=== PATIENT | male | born 1970 | race African-American/Black ===

== ENCOUNTER 2020-06-30 08:57 | Outpatient (CLI) | payer MEDICAID, SELFPAY ==
[2020-06-30 09:39] LABS: Basophils Absolute Auto 0.1 K/mm3 (0.0-0.1); Basophils Percent Auto 0.9 % (0.2-1.2); Eosinophils Absolute Auto 0.1 K/mm3 (0-0.3); Hematocrit 53.1 % (42.0-52.0); Hemoglobin 17.5 g/dL (14.0-18.0); Immature Granulocyte Absolute 0.01 K/mm3 (0.00-0.031); Immature Granulocyte Percent A 0.2 % (0-0.5); Lymphocytes Absolute Auto 3.24 K/mm3 (0.9-3.2); Lymphocytes Percent Auto 60.1 % (18.3-44.2); Mean Corpuscular Hemoglobin 27.3 pg (26-34); Mean Corpuscular Volume 82.7 fl (80-100); Mean Platelet Volume 10.6 fl (7.4-10.4); Monocytes Absolute Auto 0.3 K/mm3 (0.1-0.6); Monocytes Percent Auto 6.3 % (2.6-8.5); Neutrophils Absolute Auto 1.6 K/mm3 (1.3-6.7); Neutrophils Percent Auto 30.5 % (45.5-73.1); Platelet Count Result 224 k/mm3 (150-375); Red Blood Count 6.42 M/mm3 (4.6-6.20); Red Cell Distribution Width 15.6 % (11.5-14.5); White Blood Count 5.4 K/mm3 (4.5-10.0)
[2020-06-30 09:50] LABS: Hemoglobin A1C 6.1 % (<5.7)
[2020-06-30 09:51] LABS: Alanine Aminotransferase 64 U/L (4-50); Albumin Level 4.8 g/dL (3.5-5.1); Alkaline Phosphatase 87 U/L (38-126); Anion Gap 10 mmol/L (8-16); Anion Gap 8 mmol/L (8-16); Aspartate Amino Transferase 36 U/L (17-59); Bilirubin,Total 0.3 mg/dL (0.2-1.3); Blood Urea Nitrogen 17 mg/dL (9-20); Blood Urea Nitrogen 18 mg/dL (9-20); Calcium 9.5 mg/dL (8.4-10.2); Carbon Dioxide 26 mmol/L (22-30); Carbon Dioxide 27 mmol/L (22-30); Chloride 105 mmol/L (98-107); Chloride 106 mmol/L (98-107); Cholesterol 214 mg/dL (0-200); Estimated Glomerular Filt Rate > 60; Glucose 120 mg/dL (75-110); Glucose 121 mg/dL (75-110); HDL Direct 39 mg/dL; Potassium 4.3 mmol/L (3.4-5.0); Potassium 4.4 mmol/L (3.4-5.0); Sodium 140 mmol/L (137-145); Sodium 142 mmol/L (137-145); Triglycerides 98 mg/dL (<150); Uric Acid 7.6 mg/dL (3.5-8.5)
[2020-06-30 10:02] LABS: LDL Cholesterol Direct 155 mg/dL
[2020-06-30 10:21] LABS: Prostate Specific Antigen 0.4 ng/mL (< OR = 4.0); Vitamin D 25 Hydroxy 35.6 ng/mL
== END 2020-06-30 08:58 | disposition home or self-care (01) ==
LOC: ANHLAB 09:01
PROVIDERS: PCP Internal Medicine; Visit Provider Nurse Practitioner
DX: E78.5 Hyperlipidemia, unspecified (principal); I10 Essential (primary) hypertension; R73.01 Impaired fasting glucose; M10.9 Gout, unspecified; Z12.5 Encounter for screening for malignant neoplasm of prostate; D75.1 Secondary polycythemia; Z87.39 Personal history of other diseases of the musculoskeletal system and connective tissue
CPT/HCPCS: 36415; 80048; 80053; 80061; 82306; 83036; 84153; 84550; 85025

== ENCOUNTER 2021-01-02 08:43 | Outpatient (CLI) | payer OTHER, SELFPAY ==
[2021-01-02 09:15] LABS: Alanine Aminotransferase 38 U/L (4-50); Albumin Level 4.6 g/dL (3.5-5.1); Alkaline Phosphatase 79 U/L (38-126); Anion Gap 8 mmol/L (8-16); Aspartate Amino Transferase 27 U/L (17-59); Bilirubin,Total 0.3 mg/dL (0.2-1.3); Blood Urea Nitrogen 17 mg/dL (9-20); Calcium 9.3 mg/dL (8.4-10.2); Carbon Dioxide 24 mmol/L (22-30); Chloride 106 mmol/L (98-107); Cholesterol 126 mg/dL (0-200); Estimated Glomerular Filt Rate > 60; Glucose 128 mg/dL (75-110); HDL Direct 36 mg/dL; Potassium 4.3 mmol/L (3.4-5.0); Sodium 138 mmol/L (137-145); Triglycerides 59 mg/dL (<150)
[2021-01-02 09:27] LABS: LDL Cholesterol Direct 74 mg/dL
[2021-01-02 09:43] LABS: Hemoglobin A1C 6.4 % (<5.7)
[2021-01-02 09:45] LABS: Prostate Specific Antigen 0.5 ng/mL (< OR = 4.0)
== END 2021-01-02 08:44 | disposition home or self-care (01) ==
PROVIDERS: PCP Internal Medicine; Visit Provider Internal Medicine
DX: E78.5 Hyperlipidemia, unspecified (principal); I10 Essential (primary) hypertension; M10.9 Gout, unspecified; R73.03 Prediabetes; Z12.5 Encounter for screening for malignant neoplasm of prostate; Z79.899 Other long term (current) drug therapy
CPT/HCPCS: 36415; 80053; 80061; 83036; 84153; 84550; G0103

== ENCOUNTER 2021-07-05 16:23 | Outpatient (CLI) | payer OTHER, SELFPAY ==
[2021-07-05 17:03] LABS: Hemoglobin A1C 6.3 % (<5.7)
[2021-07-05 17:06] LABS: Alanine Aminotransferase 43 U/L (4-50); Albumin Level 4.9 g/dL (3.5-5.1); Alkaline Phosphatase 84 U/L (38-126); Anion Gap 12 mmol/L (8-16); Aspartate Amino Transferase 34 U/L (17-59); Bilirubin,Total 0.5 mg/dL (0.2-1.3); Blood Urea Nitrogen 18 mg/dL (9-20); Carbon Dioxide 27 mmol/L (22-30); Chloride 102 mmol/L (98-107); Cholesterol 143 mg/dL (0-200); Estimated Glomerular Filt Rate > 60; Glucose 89 mg/dL (65-110); HDL Direct 42 mg/dL; Sodium 141 mmol/L (137-145); Triglycerides 112 mg/dL (<150); Uric Acid 8.6 mg/dL (3.5-8.5)
[2021-07-05 17:19] LABS: LDL Cholesterol Direct 78 mg/dL
[2021-07-05 17:40] LABS: Prostate Specific Antigen 0.6 ng/mL (< OR = 4.0)
== END 2021-07-05 16:24 | disposition home or self-care (01) ==
LOC: ANHLAB 16:29
PROVIDERS: PCP Internal Medicine; Visit Provider Nurse Practitioner
DX: Z12.5 Encounter for screening for malignant neoplasm of prostate (principal); I10 Essential (primary) hypertension; Z79.899 Other long term (current) drug therapy; R73.03 Prediabetes; E78.5 Hyperlipidemia, unspecified
CPT/HCPCS: 36415; 80053; 80061; 83036; 84153; 84550; G0103

== ENCOUNTER 2022-01-19 10:33 | Outpatient (CLI) | payer OTHER, SELFPAY ==
--- NOTE | ~2022-01-19 | XR_ITS ---
EXAMINATION: XR hip LT min 2V INDICATION: Left hip pain TECHNIQUE: Two views of the left hip are obtained. COMPARISON: None available FINDINGS: Bone alignment is normal. There is no fracture. The soft tissues are unremarkable. Phleboli ths are noted in the pelvis. IMPRESSION: 1. No acute osseous abnormality. Reviewed, dictated and finalized at location B.
[2022-01-19 11:11] LABS: Alanine Aminotransferase 33 U/L (4-50); Alkaline Phosphatase 70 U/L (38-126); Anion Gap 10 mmol/L (8-16); Aspartate Amino Transferase 32 U/L (17-59); Bilirubin,Total 0.7 mg/dL (0.2-1.3); Blood Urea Nitrogen 19 mg/dL (9-20); Calcium 9.3 mg/dL (8.4-10.2); Carbon Dioxide 23 mmol/L (22-30); Chloride 104 mmol/L (98-107); Cholesterol 144 mg/dL (0-200); Estimated Glomerular Filt Rate > 60; Glucose 103 mg/dL (65-110); HDL Direct 37 mg/dL; Potassium 4.5 mmol/L (3.4-5.0); Sodium 137 mmol/L (137-145); Triglycerides 70 mg/dL (<150)
[2022-01-19 11:19] LABS: LDL Cholesterol Direct 83 mg/dL
== END 2022-01-19 10:34 | disposition home or self-care (01) ==
LOC: ANHLAB 10:41
PROVIDERS: PCP Internal Medicine; Visit Provider Nurse Practitioner
DX: E78.5 Hyperlipidemia, unspecified (principal); R73.03 Prediabetes; M25.559 Pain in unspecified hip
CPT/HCPCS: 36415; 73502; 80053; 80061; 83036

== ENCOUNTER 2022-12-03 11:48 | Outpatient (CLI) | payer OTHER, SELFPAY ==
[2022-12-03 13:06] LABS: Alanine Aminotransferase 45 U/L (6-50); Albumin Level 4.9 g/dL (3.5-5.1); Alkaline Phosphatase 94 U/L (38-126); Anion Gap 8 mmol/L (8-16); Aspartate Amino Transferase 32 U/L (17-59); Bilirubin,Total 0.5 mg/dL (0.2-1.3); Blood Urea Nitrogen 15 mg/dL (9-20); Calcium 9.5 mg/dL (8.4-10.2); Carbon Dioxide 26 mmol/L (22-30); Chloride 104 mmol/L (98-107); Cholesterol 152 mg/dL (0-200); Estimated Glomerular Filt Rate > 60; Glucose 112 mg/dL (65-110); HDL Direct 37 mg/dL; Potassium 4.2 mmol/L (3.4-5.0); Sodium 138 mmol/L (137-145); Triglycerides 74 mg/dL (<150)
[2022-12-03 13:07] LABS: Hemoglobin A1C 6.5 % (<5.7)
[2022-12-03 13:17] LABS: LDL Cholesterol Direct 94 mg/dL
[2022-12-03 13:34] LABS: Creatinine Urine 127.4 mg/dL
[2022-12-03 14:07] LABS: MALB Creatinine Ratio 194.9 mg/g (0-30); Microalbumin Urine Random 248.3 mg/L (0-16.7)
== END 2022-12-03 11:49 | disposition home or self-care (01) ==
LOC: ANHLAB 11:49
PROVIDERS: PCP Internal Medicine; Visit Provider Nurse Practitioner Family
DX: R73.03 Prediabetes (principal); I10 Essential (primary) hypertension; E78.5 Hyperlipidemia, unspecified
CPT/HCPCS: 36415; 80053; 80061; 82043; 83036

== ENCOUNTER 2023-03-12 10:25 | Outpatient (CLI) | payer OTHER, SELFPAY ==
[2023-03-12 10:51] LABS: Alanine Aminotransferase 47 U/L (6-50); Albumin Level 4.6 g/dL (3.5-5.1); Alkaline Phosphatase 112 U/L (38-126); Anion Gap 9 mmol/L (8-16); Aspartate Amino Transferase 31 U/L (17-59); Bilirubin,Total 0.3 mg/dL (0.2-1.3); Blood Urea Nitrogen 18 mg/dL (9-20); Calcium 9.1 mg/dL (8.4-10.2); Carbon Dioxide 26 mmol/L (22-30); Chloride 105 mmol/L (98-107); Estimated Glomerular Filt Rate > 60; Glucose 117 mg/dL (65-110); Potassium 4.1 mmol/L (3.4-5.0); Sodium 140 mmol/L (137-145)
[2023-03-12 10:57] LABS: Hemoglobin A1C 5.6 % (<5.7)
== END 2023-03-12 10:26 | disposition home or self-care (01) ==
LOC: ANHLAB 10:27
PROVIDERS: PCP Family Medicine; Visit Provider Nurse Practitioner Family
DX: E11.9 Type 2 diabetes mellitus without complications (principal)
CPT/HCPCS: 36415; 80053; 83036

== ENCOUNTER 2023-09-02 11:21 | Outpatient (CLI) | payer OTHER, SELFPAY ==
[2023-09-02 11:46] LABS: Basophils Percent Auto 0.7 % (0.2-1.2); Eosinophils Absolute Auto 0.2 K/mm3 (0-0.3); Eosinophils Percent Auto 3.3 % (0-4.4); Hematocrit 50.1 % (42.0-52.0); Hemoglobin 15.2 g/dL (14.0-18.0); Immature Granulocyte Absolute 0.01 K/mm3 (0.00-0.031); Immature Granulocyte Percent A 0.2 % (0-0.5); Lymphocytes Absolute Auto 2.62 K/mm3 (0.9-3.2); Lymphocytes Percent Auto 45.3 % (18.3-44.2); Mean Corpuscular HGB Conc 30.3 g/dl (32-36); Mean Corpuscular Hemoglobin 24.1 pg (26-34); Mean Corpuscular Volume 79.5 fl (80-100); Mean Platelet Volume 9.5 fl (7.4-10.4); Monocytes Absolute Auto 0.5 K/mm3 (0.1-0.6); Monocytes Percent Auto 8.5 % (2.6-8.5); Neutrophils Absolute Auto 2.4 K/mm3 (1.3-6.7); Platelet Count Result 251 k/mm3 (150-375); White Blood Count 5.8 K/mm3 (4.5-10.0)
[2023-09-02 11:50] LABS: Appearance Urine Clear (Clear); Bacteria Urine None Seen /hpf; Bilirubin Urine Negative (Negative); Blood Urine Negative (Negative); Color Urine Yellow (Yellow); Glucose Urine UA Negative (Negative); Ketones Urine Negative (Negative); Leukocyte Esterase Ur Negative LEU/UL (NEGATIVE); Nitrate Urine Negative (Negative); Non Pathogenic Casts 0-2; Protein Urine 1+ mg/dL (Negative); RBC Urine 0-2 /hpf (0-2); Squamous Epithelial Cell Urine None seen /hpf (Few); WBC Urine 0-5 /hpf (0-3)
[2023-09-02 11:59] LABS: Alanine Aminotransferase 22 U/L (6-50); Albumin Level 4.6 g/dL (3.5-5.1); Alkaline Phosphatase 105 U/L (38-126); Anion Gap 9 mmol/L (8-16); Aspartate Amino Transferase 23 U/L (17-59); Bilirubin,Total 0.5 mg/dL (0.2-1.3); Blood Urea Nitrogen 16 mg/dL (9-20); Calcium 9.3 mg/dL (8.4-10.2); Carbon Dioxide 24 mmol/L (22-30); Chloride 105 mmol/L (98-107); Cholesterol 133 mg/dL (0-200); Estimated Glomerular Filt Rate > 60; Glucose 91 mg/dL (65-110); HDL Direct 36 mg/dL; Potassium 4.5 mmol/L (3.4-5.0); Sodium 138 mmol/L (137-145); Triglycerides 67 mg/dL (<150)
[2023-09-02 12:09] LABS: LDL Cholesterol Direct 79 mg/dL
[2023-09-02 12:10] LABS: Add Urine Microscopic? YES
[2023-09-02 12:15] LABS: Creatinine Urine 164.9 mg/dL
[2023-09-02 12:28] LABS: Prostate Specific Antigen 0.6 ng/mL (< OR = 4.0)
[2023-09-02 12:32] LABS: MALB Creatinine Ratio 130.1 mg/g (0-30); Microalbumin Urine Random 214.5 mg/L (0-16.7)
== END 2023-09-02 11:22 | disposition home or self-care (01) ==
PROVIDERS: PCP Family Medicine; Visit Provider Nurse Practitioner Family
DX: E11.9 Type 2 diabetes mellitus without complications (principal); E78.00 Pure hypercholesterolemia, unspecified; I10 Essential (primary) hypertension; Z00.00 Encounter for general adult medical examination without abnormal findings; Z12.5 Encounter for screening for malignant neoplasm of prostate
CPT/HCPCS: 36415; 80053; 80061; 81001; 82043; 83036; 84153; 85025; G0103

== ENCOUNTER 2023-12-23 11:52 | Outpatient (CLI) | payer OTHER, SELFPAY ==
[2023-12-23 13:19] LABS: Alanine Aminotransferase 24 U/L (6-50); Albumin Level 4.6 g/dL (3.5-5.1); Alkaline Phosphatase 98 U/L (38-126); Anion Gap 7 mmol/L (4-12); Aspartate Amino Transferase 21 U/L (17-59); Bilirubin,Total 0.6 mg/dL (0.2-1.3); Blood Urea Nitrogen 16 mg/dL (9-20); Calcium 9.5 mg/dL (8.4-10.2); Carbon Dioxide 25 mmol/L (22-30); Chloride 107 mmol/L (98-107); Estimated Glomerular Filt Rate > 60; Glucose 96 mg/dL (65-110); Potassium 3.9 mmol/L (3.4-5.0); Sodium 139 mmol/L (137-145)
[2023-12-23 13:28] LABS: Creatinine Urine 187.9 mg/dL
[2023-12-23 13:31] LABS: Hemoglobin A1C 5.6 % (<5.7)
[2023-12-23 13:32] LABS: MALB Creatinine Ratio 78.8 mg/g (0-30); Microalbumin Urine Random 148.1 mg/L (0-16.7)
== END 2023-12-23 11:53 | disposition home or self-care (01) ==
LOC: ANHLAB 11:54
PROVIDERS: PCP Family Medicine; Visit Provider Nurse Practitioner Family
DX: E11.9 Type 2 diabetes mellitus without complications (principal); I10 Essential (primary) hypertension
CPT/HCPCS: 36415; 80053; 82043; 83036

== ENCOUNTER 2024-10-22 08:28 | Outpatient (CLI) | payer OTHER, SELFPAY ==
--- OUTSIDE RECORDS SUMMARY | 2024-10-22 08:34 | XMS_ITS | Continuity of Care Document ---
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 Emergency [facility] [place] [place] [address] Flank Pain Discharge Disposition: Left Against Medical Advice 08/20/2021 Travel 03/12/2018 6:26 PM CDT - 03/12/2018 8:59 PM CDT Emergency [facility] [place] [place] [address] Shine Gamez MD Bleeding (Rectal) (3 times today) Discharge Disposition: Home or Self Care (Routine Discharge) Allergies Active Allergy Reactions Criticality Noted Date Comments Penicillins Rash Low 03/12/2018 Social History Smoking Status as of 10/22/2024 Tobacco Use Types Packs/Day Years Used Date Smoking Tobacco: Never Assessed Sex and Gender Information Value Date Recorded Sex Assigned at Not on file Legal Sex Male 6:21 PM CDT Gender Identity Not on file Sexual Orientation Not on file Last Filed Vital Signs Vital Sign Reading Time Taken Comments Blood Pressure 167/86 08/20/2021 10:09 PM DEOILING MACHINE OPERATOR Pulse 80 08/20/2021 10:09 PM DEOILING MACHINE OPERATOR Temperature 35.1 C (95.1 F) 08/20/2021 10:09 PM DEOILING MACHINE OPERATOR Respiratory Rate 18 08/20/2021 10:09 PM DEOILING MACHINE OPERATOR Oxygen Saturation 96% 08/20/2021 10:09 PM DEOILING MACHINE OPERATOR Inhaled Oxygen Concentration - - Weight 97.7 kg (215 lb 6.2 oz) 08/20/2021 10:09 PM DEOILING MACHINE OPERATOR Height 175.3 cm (5' 9 ) 08/20/2021 10:09 PM DEOILING MACHINE OPERATOR Body Mass Index 31.81 08/20/2021 10:09 PM DEOILING MACHINE OPERATOR Plan of Treatment Not on file Procedures Procedure Name Priority Date/Time Associated Diagnosis Comments BASIC METABOLIC PANEL STAT 03/12/2018 7:49 PM CDT PROTHROMBIN TIME, VENOUS STAT 03/12/2018 7:49 PM CDT CBC W/DIFF AUTOMATED STAT 03/12/2018 7:49 PM CDT Results * PROTIME/INR, VENOUS (03/12/2018 7:49 PM CDT) PROTIME 11.8 9.6 - 12.2 SEC 03/12/2018 8:30 PM CDT [facility] INR 1.1 03/12/2018 8:30 PM CDT [facility] Comment: Recommended INR Therapeutic Goals: 2.0-3.0 Routine Therapy 2.5-3.5 Mechanical Prosthetic Valves (High Risk) 3.0-4.0 Acute DE (to prevent Systemic Embolism) The INR is used only for patients on stable oral anticoagulant therapy. It makes no significant contribution to the diagnosis or treatment of patients whose Protime is prolonged for other reasons. 03/12/2018 7:49 PM CDT us Jaquelin Huynh [facility] Final Res ult [facility] [address] [place] [address], [place] [phone] * (ABNORMAL) BASIC METABOLIC PANEL (03/12/2018 7:49 PM CDT) GLUCOSE 86 70 - 99 MG/DL 03/12/2018 8:38 PM [facility] BUN 19(H) 7 - 18 MG/DL 03/12/2018 8:38 PM [facility] CREATININE S/P/B 0.94 0.7 - 1.3 MG/DL 03/12/2018 8:38 PM [facility] SODIUM S/P/B 139 136 - 145 MMOL/L 03/12/2018 8:38 PM [facility] POTASSIUM S/P/B 4.2 3.5 - 5.1 MMOL/L 03/12/2018 8:38 PM [facility] Comment:SLIGHT HEMOLYSIS, RE SULT MAY BE AFFECTED. CHLORIDE S/P/B 107 100 - 108 MMOL/L 03/12/2018 8:38 PM [facility] CO2 23.0 21 - 32 MMOL/L 03/12/2018 8:38 PM [facility] CALCIUM S/P/B 8.7 8.5 - 10.1 MG/DL 03/12/2018 8:38 PM [facility] ANION GAP 13.2 8 - 20 MMOL/L 03/12/2018 8:38 PM [facility] BUN CREATININE RATIO 20.1 6 - 26 03/12/2018 8:38 PM [facility] EGFR NON-AFR. AMER. >90 >90 ML/MIN/1.7 3 M2 03/12/2018 8:38 PM [facility] EGFR AFR. AMER. >90 >90 ML/MIN/1.7 3 M2 03/12/2018 8:38 PM [facility] Comment: NOTE: eGFR is not calculated for patients <18 years of age. This is an estimated GFR (CKD EPI) and should not be used for calculating drug doses. 03/12/2018 7:49 PM CDT Shine Gamez MD LABORATORY Final Result [facility] [address] [place] [address], [place] [phone] * (ABNORMAL) CBC W/DIFF AUTOMATED (03/12/2018 7:49 PM CDT) Pathologist [facility] WBC 6.5 4.5 - 11.0 x10'3/uL 03/12/2018 8:21 PM CDT [facility] RBC 6.35(H) 4.70 - 6.10 x10'6/uL 03/12/2018 8:21 PM CDT [facility] HGB 17.1 14.0 - 18.0 G/DL 03/12/2018 8:21 PM CDT [facility] HCT 53.3 43.0 - 54.0 % 03/12/2018 8:21 PM CDT [facility] MCV 83.9 80.0 - 94.0 FL 03/12/2018 8:21 PM CDT [facility] MCH 26.9(L) 27.0 - 31.0 PG 03/12/2018 8:21 PM CDT [facility] MCHC 32.1 32.0 - 36.0 G/DL 03/12/2018 8:21 PM CDT [facility] RDW 16.6(H) 11.5 - 14.5 % 03/12/2018 8:21 PM CDT [facility] PLT 204 130 - 400 x10'3/uL 03/12/2018 8:21 PM CDT [facility] MPV 10.9 9.3 - 12.2 FL 03/12/2018 8:21 PM CDT [facility] DIFFERENTIAL TYPE AUTOMATED DIFFERENTIAL 03/12/2018 8:21 PM CDT [facility] NEUTROPHILS % 38.9 % 03/12/2018 8:21 PM CDT [facility] LYMPHOCYTES % 49.5 % 03/12/2018 8:21 PM CDT [facility] MONOCYTES % 8.5 % 03/12/2018 8:21 PM CDT [facility] EOSINOPHILS 2.2 % 03/12/2018 8:21 PM CDT [facility] BASOPHILS 0.6 % 03/12/2018 8:21 PM CDT [facility] IMMATURE GRANS % 0.3(H) 0 % 03/12/20 18 8:21 PM CDT [facility] ABS. NEUTROPHILS TOTAL 2.52 1.80 - 7.70 x10'3/uL 03/12/2018 8:21 PM CDT [facility] ABS. LYMPHOCYTES 3.20 1.00 - 4.80 x10'3/uL 03/12/2018 8:21 PM CDT [facility] ABS. MONOCYTES 0.55 0.30 - 0.82 x10'3/uL 03/12/2018 8:21 PM CDT [facility] ABS. EOSINOPHILS 0.14 0.04 - 0.54 x10'3/uL 03/12/2018 8:21 PM CDT [facility] ABS. BASOPHILS 0.04 0.01 - 0.08 x10'3/uL 03/12/2018 8:21 PM CDT [facility] ABS. IMMATURE GRANULOCYTES 0.02 0.00 - 0.03 x10'3/uL 03/12/2018 8:21 PM CDT [facility] 03/12/2018 7:49 PM CDT Jaquelni Huynh [facility] Final Res ult [facility] [address] [place] [address], Visit Diagnoses Diagnosis Start Date Bloody stool Blood in stool 03/12/2018 Care Teams Cement Mason Helper Relationship Specialty Start Date End Date None, Provider, PCP - General 08/20/21
[2024-10-22 09:12] LABS: Basophils Percent Auto 0.5 % (0.2-1.2); Eosinophils Absolute Auto 0.2 K/mm3 (0-0.3); Eosinophils Percent Auto 3.6 % (0-4.4); Hematocrit 49.8 % (42.0-52.0); Hemoglobin 15.9 g/dL (14.0-18.0); Lymphocytes Percent Auto 50.2 % (18.3-44.2); Mean Corpuscular HGB Conc 31.9 g/dl (32-36); Mean Corpuscular Hemoglobin 26.9 pg (26-34); Mean Corpuscular Volume 84.3 fl (80-100); Mean Platelet Volume 9.9 fl (7.4-10.4); Monocytes Absolute Auto 0.4 K/mm3 (0.1-0.6); Neutrophils Absolute Auto 2.2 K/mm3 (1.3-6.7); Neutrophils Percent Auto 38.7 % (45.5-73.1); Platelet Count Result 220 k/mm3 (150-375); Red Blood Count 5.91 M/mm3 (4.6-6.20); Red Cell Distribution Width 15.4 % (11.5-14.5); White Blood Count 5.6 K/mm3 (4.5-10.0)
[2024-10-22 09:19] LABS: Hemoglobin A1C 5.6 % (<5.7)
[2024-10-22 09:27] LABS: Alanine Aminotransferase 19 U/L (6-50); Albumin Level 4.5 g/dL (3.5-5.1); Alkaline Phosphatase 102 U/L (38-126); Anion Gap 13 mmol/L (4-12); Aspartate Amino Transferase 18 U/L (17-59); Bilirubin,Total 0.5 mg/dL (0.2-1.3); Blood Urea Nitrogen 21 mg/dL (9-20); Calcium 9.2 mg/dL (8.4-10.2); Carbon Dioxide 25 mmol/L (22-30); Chloride 105 mmol/L (98-107); Cholesterol 114 mg/dL (0-200); Estimated Glomerular Filt Rate > 60; Glucose 95 mg/dL (65-110); HDL Direct 36 mg/dL; Potassium 4.4 mmol/L (3.4-5.0); Sodium 143 mmol/L (137-145); Triglycerides 49 mg/dL (<150)
[2024-10-22 09:39] LABS: LDL Cholesterol Direct 57 mg/dL
[2024-10-22 09:56] LABS: Creatinine Urine 280.9 mg/dL
[2024-10-22 09:59] LABS: MALB Creatinine Ratio 35.7 mg/g (0-30); Microalbumin Urine Random 100.3 mg/L (0-16.7)
[2024-10-22 10:20] LABS: Vitamin D 25 Hydroxy < 12.8 ng/mL
== END 2024-10-22 08:29 | disposition home or self-care (01) ==
LOC: ANHLAB 08:30
PROVIDERS: PCP Nurse Practitioner Family; Visit Provider Nurse Practitioner Family
DX: E78.00 Pure hypercholesterolemia, unspecified (principal); I10 Essential (primary) hypertension; E55.9 Vitamin D deficiency, unspecified; Z79.899 Other long term (current) drug therapy
CPT/HCPCS: 36415; 80053; 80061; 82043; 82306; 83036; 85025

== ENCOUNTER 2025-05-27 11:11 | Outpatient (CLI) | payer OTHER, SELFPAY ==
[2025-05-27 11:34] LABS: Hemoglobin A1C 5.7 % (<5.7)
[2025-05-27 11:50] LABS: Alanine Aminotransferase 21 U/L (6-50); Albumin Level 4.5 g/dL (3.5-5.1); Alkaline Phosphatase 96 U/L (38-126); Anion Gap 11 mmol/L (4-12); Aspartate Amino Transferase 20 U/L (17-59); Bilirubin,Total 0.4 mg/dL (0.2-1.3); Blood Urea Nitrogen 18 mg/dL (9-20); Calcium 9.3 mg/dL (8.4-10.2); Carbon Dioxide 22 mmol/L (22-30); Chloride 106 mmol/L (98-107); Estimated Glomerular Filt Rate > 60; Glucose 90 mg/dL (65-110); Potassium 4.0 mmol/L (3.4-5.0); Sodium 139 mmol/L (137-145); Total Protein 8.1 g/dL (6.3-8.2)
[2025-05-27 11:54] LABS: MALB Creatinine Ratio 31.7 mg/g (0-30)
[2025-05-27 12:26] LABS: Prostate Specific Antigen 0.6 ng/mL (< OR = 4.0)
== END 2025-05-27 11:12 | disposition home or self-care (01) ==
LOC: ANHLAB 11:11
PROVIDERS: PCP Nurse Practitioner Family; Visit Provider Nurse Practitioner Family
DX: Z00.00 Encounter for general adult medical examination without abnormal findings (principal); I10 Essential (primary) hypertension; E78.00 Pure hypercholesterolemia, unspecified; E55.9 Vitamin D deficiency, unspecified; E11.9 Type 2 diabetes mellitus without complications; Z79.899 Other long term (current) drug therapy; Z87.39 Personal history of other diseases of the musculoskeletal system and connective tissue
CPT/HCPCS: 36415; 80053; 82043; 82306; 83036; 84153; G0103